=== PATIENT | male | born 1985 | race American Indian/Alaskan Native ===

== ENCOUNTER 2020-11-12 06:42 | Emergency (ER) | payer SELFPAY ==
[2020-11-12] MEDS ORDERED: ONDANSETRON 4 MG ODT TAB PO ONE (07:29)
[2020-11-12] MEDS ORDERED: MORPHINE 4 MG/1 ML INJ IV ONE (07:51)
[2020-11-12] MEDS ORDERED: SODIUM CHLORIDE 0.9% 1000 ML 1,000 ML IV ONE (07:51)
[2020-11-12] MEDS ORDERED: diphenhydrAMINE 50 MG/ML VIAL IV ONE (07:51)
[2020-11-12] MEDS ORDERED: METOCLOPRAMIDE 10 MG/2 ML INJ IV ONE (07:51)
[2020-11-12 08:22] LABS: Basophils % (Auto) 0.6 % (0.0-1.8); Eosinophils % (Auto) 0.1 % (0.0-4.3); Lymphocytes # (Auto) 1.2 K/mm3 (1.2-5.4); Lymphocytes % (Auto) 14.7 % (13.4-35.0); Mean Corpuscular HGB Conc 35 % (32-34); Mean Corpuscular Volume 85 fl (84-94); Monocytes # (Auto) 0.6 K/mm3 (0.0-0.8); Monocytes % (Auto) 7.7 % (0.0-7.3); Platelet Count 200 K/mm3 (140-440); Red Blood Count 4.72 M/mm3 (3.65-5.03); Red Cell Distribution Width 13.7 % (13.2-15.2)
--- NOTE | 2020-11-12 08:43 | Emergency Department Report ---
ED General Adult HPI - General Chief complaint: Abdominal Pain Stated complaint: N/V Time Seen by Provider: 11/12/20 07:44 Source: patient Mode of arrival: Wheelchair Limitations: No Limitations - History of Present Illness Initial comments: 34-year-old -Ivorian male patient presents with complaints of sudden onset of mid abdominal pain and nausea and vomiting starting around 12 AM last night. Patient rates pain as 10/10 in severity and describes it as aching and stabbing. He denies any hematemesis/coffee-ground emesis, diarrhea/constipation, fever/chills/sweats, chest pain/shortness of breath, or history of abdominal surgeries. No alcohol use per patient. He does admit to marijuana use yesterday. Patient states he has had 1 similar episode to this in the past, however he is unsure of what the cause was. -: Sudden Severity scale (0 -10): 10 - Related Data Previous Rx's Medication Instructions Recorded Last Taken Type Capsaicin 45 gm TP QID PRN #1 cream..g. 11/12/20 Unknown Rx Metoclopramide [Reglan] 10 mg PO TID PRN #15 tab 11/12/20 Unknown Rx diphenhydrAMINE [Benadryl CAP] 25 mg PO Q8HR PRN #15 capsule 11/12/20 Unknown Rx Allergies Allergy/AdvReac Type Severity Reaction Status Date / Time No Known Allergies Allergy Verified 11/12/20 07:18 ED Review of Systems ROS: Stated complaint: N/V Other details as noted in HPI Constitutional: denies: chills, diaphoresis, fever, malaise, weakness Respiratory: denies: cough, shortness of breath Cardiovascular: denies: chest pain Gastrointestinal: abdominal pain, nausea, vomiting. denies: diarrhea, co nstipation, hematemesis, melena Genitourinary: denies: urgency, dysuria, frequency, hematuria Skin: denies: rash, lesions, change in color Hematological/Lymphatic: denies: swollen glands ED Past Medical Hx - Past Medical History Previous Medical History?: No - Surgical History Past Surgical History?: No - Social History Smoking Status: Never Smoker Substance Use Type: None - Medications Home Medications: Home Medications Medication Instructions Recorded Confirmed Last Taken Type Capsaicin 45 gm TP QID PRN #1 cream..g. 11/12/20 Unknown Rx Metoclopramide [Reglan] 10 mg PO TID PRN #15 tab 11/12/20 Unknown Rx diphenhydrAMINE [Benadryl CAP] 25 mg PO Q8HR PRN #15 capsule 11/12/20 Unknown Rx ED Physical Exam - General Limitations: No Limitations General appearance: alert, other (Patient appears uncomfortable holding abdomen) - Head Head exam: Present: atraumatic - Eye Eye exam: Present: normal appearance. Absent: scleral icterus - Neck Neck exam: Present: normal inspection - Respiratory Respiratory exam: Present: normal lung sounds bilaterally. Absent: respiratory distress - Cardiovascular Cardiovascular Exam: Present: regular rate, normal rhythm. Absent: systolic murmur, diastolic murmur, rubs, gallop - GI/Abdominal GI/Abdominal exam: Present: soft, tenderness, guarding, normal bowel sounds. Absent: distended, rigid - Extremities Exam Extremities exam: Present: full ROM - Back Exam Back exam: Present: normal inspection - Neurological Exam Neurological exam: Present: alert, oriented X3, normal gait - Psychiatric Psychiatric exam: Present: normal affect, normal mood - Skin Skin exam: Present: warm, dry, intact, normal color. Absent: rash ED Course Vital Signs 11/12/20 11/12/20 11/12/20 07:17 08:23 13:45 Temperature 97.8 F Pulse Rate 45 L 47 L 48 L Respiratory 20 14 14 Rate Blood Pressure 134/72 Blood Pressure 138/75 [Left] O2 Sat by Pulse 100 100 99 Oximetry ED Medical Decision Making - Lab Data Result diagrams: 11/12/20 08:04 11/12/20 08:04 Lab Results 11/12/20 11/12/20 Range/Units 08:04 08:04 WBC 8.3 (4.5-11.0) K/mm3 RBC 4.72 (3.65-5.03) M/mm3 Hgb 14.0 (11.8-15.2) gm/dl Hct 40.0 (35.5-45.6) % MCV 85 (84-94) fl MCH 30 (28-32) pg MCHC 35 H (32-34) % RDW 13.7 (13.2-15.2) % Plt Count 200 (140-440) K/mm3 Lymph % (Auto) 14.7 (13.4-35.0) % Pratt % (Auto) 7.7 H (0.0-7.3) % Eos % (Auto) 0.1 (0.0-4.3) % Baso % (Auto) 0.6 (0.0-1.8) % Lymph # (Auto) 1.2 (1.2-5.4) K/mm3 Pratt # (Auto) 0.6 (0.0-0.8) K/mm3 Eos # (Auto) 0.0 (0.0-0.4) K/mm3 Baso # (Auto) 0.0 (0.0-0.1) K/mm3 Seg Neutrophils % 76.9 H (40.0-70.0) % Seg Neutrophils # 6.4 (1.8-7.7) K/mm3 Sodium 139 (137-145) mmol/L Potassium 4.0 (3.6-5.0) mmol/L Chloride 104.1 (98-107) mmol/L Carbon Dioxide 22 (22-30) mmol/L Anion Gap 17 mmol/L BUN 16 (9-20) mg/dL Creatinine 1.1 (0.8-1.3) mg/dL Estimated GFR > 60 ml/min BUN/Creatinine Ratio 15 % Glucose 157 H (75-100) mg/dL Calcium 9.2 (8.4-10.2) mg/dL Total Bilirubin 0.40 (0.1-1.2) mg/dL AST 27 (5-40) units/L ALT 20 (7-56) units/L Alkaline Phosphatase 74 (35-129) units/L Total Protein 7.6 (6.3-8.2) g/dL Albumin 4.5 (3.9-5) g/dL Albumin/Globulin Ratio 1.5 % Lipase 28 (13-60) units/L - Radiology Data Radiology results: report reviewed CT ABDOMEN AND PELVIS WITH CONTRAST INDICATION / CLINICAL INFORMATION: MAIN. TECHNIQUE: Axial CT images were obtained through the abdomen and pelvis after 100 cc Omnipaque [address] scans at this location are performed using CT dose reduction for ALARA by means of automated exposure control. COMPARISON: None available. FINDINGS: LOWER CHEST: 5 mm perifissural nodule likely representing a benign in trapulmonary lymph node. HEPATOBILIARY: No significant abnormality. PANCREAS/SPLEEN/ADRENALS: No significant abnormality. GENITOURINARY: No significant abnormality. GASTROINTESTINAL/MESENTERY: Appendix is visualized and demonstrates no significant abnormality. No bowel obstruction or inflammation is evident. No free air or significant free fluid. RETROPERITONEUM: No significant adenopathy. REPRODUCTIVE ORGANS: No significant abnormality. VASCULAR: No significant abnormality. BODY WALL: No significant abnormality. SKELETAL SYSTEM: No significant abnormality. IMPRESSION: 1. No acute abdominopelvic abnormality. - Medical Decision Making 34-year-old -Ivorian male patient presents with complaints of sudden onset of mid abdominal pain and nausea and vomiting starting around 12 AM last night. Patient rates pain as 10/10 in severity and describes it as aching and stabbing. He denies any hematemesis/coffee-ground emesis, diarrhea/constipation, fever/chills/sweats, chest pain/shortness of breath, or history of abdominal surgeries. No alcohol use per patient. He does admit to marijuana use yesterday. Patient states he has had 1 similar episode to this in the past, however he is unsure of what the cause was. Given guarding of abdomen on palpation and acute onset of pain, CT abdomen was performed and is negative for any acute abnormalities. Incidental pulmonary nodule found-recommend patient follows up with his primary care doctor for further evaluation of this. After Haldol, pain and vomiting have resolved. Suspect patient symptoms are due to cannabinoid hyperemesis syndrome. His vitals are normal, he is well-appearing, he is stable for discharge home. Strict return precautions were discussed in detail with patient who verbalizes understanding. Critical care attestation.: If time is entered above; I have spent that time in minutes in the direct care of this critically ill patient, excluding procedure time. ED Disposition Clinical Impression: Abdominal pain, Pulmonary nodule 1 cm or greater in diameter, Nausea and vomiting Disposition: DC-01 TO HOME OR SELFCARE Is pt being admited?: No Condition: Stable Instructions: Nausea and Vomiting, Adult, [id number], Pulmonary Nodule, Pulmonary Nodule, [id number], Cannabinoid Hyperemesis Syndrome Prescriptions: diphenhydrAMINE [Benadryl CAP] 25 mg PO Q8HR PRN #15 capsule PRN Reason: Nausea Capsaicin 45 gm TP QID PRN #1 cream..g. PRN Reason: PAIN/NAUSEA Metoclopramide [Reglan] 10 mg PO TID PRN #15 tab PRN Reason: nausea Referrals: [facility] [Provider Group] - 3-5 Days Forms: Work/School Release Form(ED)
[2020-11-12 08:48] LABS: Alanine Aminotransferase 20 units/L (7-56); Albumin 4.5 g/dL (3.9-5); BUN/Creatinine Ratio 15; Blood Urea Nitrogen 16 mg/dL (9-20); Calcium 9.2 mg/dL (8.4-10.2); Hemolysis Index 11
--- NOTE | 2020-11-12 09:27 | Cat Scan Report ---
CT ABDOMEN AND PELVIS WITH CONTRAST INDICATION / CLINICAL INFORMATION: MAIN. TECHNIQUE: Axial CT images were obtained through the abdomen and pelvis after 100 cc Omnipaque [address] scans at this location are performed using CT dose reduction for ALARA by means of automated exposure control. COMPARISON: None available. FINDINGS: LOWER CHEST: 5 mm perifissural nodule likely representing a benign intrapulmonary lymph node. HEPATOBILIARY: No significant abnormality. PANCREAS/SPLEEN/ADRENALS: No significant abnormality. GENITOURINARY: No significant abnormality. GASTROINTESTINAL/MESENTERY: Appendix is visualized and demonstrates no significant abnormality. No stormy wel obstruction or inflammation is evident. No free air or significant free fluid. RETROPERITONEUM: No significant adenopathy. REPRODUCTIVE ORGANS: No significant abnormality. VASCULAR: No significant abnormality. BODY WALL: No significant abnormality. SKELETAL SYSTEM: No significant abnormality. IMPRESSION: 1. No acute abdominopelvic abnormality. Signer Name: Clyde Willson MD Signed: 11/12/2020 9:23 AM Workstation Name: [id number]
[2020-11-12] MEDS ORDERED: ONDANSETRON 4 MG/2 ML INJ IV ONE (09:39)
[2020-11-12] MEDS ORDERED: KETOROLAC 30 MG/1 ML INJ IV ONE (09:39)
[2020-11-12] MEDS ORDERED: HALOPERIDOL LACTATE 5 MG/1 ML INJ IM ONE (11:10)
[2020-11-12 14:01] VITALS: BP 138/75
== END 2020-11-12 13:45 | disposition home or self-care (01) ==
LOC: ED 06:42
DX: R91.8 Other nonspecific abnormal finding of lung field (principal); R11.2 Nausea with vomiting, unspecified; R10.9 Unspecified abdominal pain; Z79.899 Other long term (current) drug therapy
CPT/HCPCS: 36415; 74177; 80053; 83690; 85025; 96361; 96372; 96374; 96375; 99284; J1200; J1630; J1885; J2270; J2405; J2765; J7030; Q9967; Q0162

== ENCOUNTER 2021-08-10 17:10 | Inpatient (IN) | payer SELFPAY ==
[2021-08-10] MEDS ORDERED: ONDANSETRON 4 MG/2 ML INJ ONE (17:31)
[2021-08-10] MEDS ORDERED: SODIUM CHLORIDE 0.9% 1000 ML 1,000 ML IV ONE ×2 (17:41→20:58)
[2021-08-10] MEDS ORDERED: ONDANSETRON 4 MG/2 ML INJ IV ONE ×2 (17:41→19:25)
[2021-08-10] MEDS ORDERED: MORPHINE 4 MG/1 ML INJ IV ONE (17:41)
[2021-08-10] MEDS ORDERED: METOCLOPRAMIDE 10 MG/2 ML INJ ONE (17:50)
[2021-08-10] MEDS ORDERED: METOCLOPRAMIDE 10 MG/2 ML INJ IV ONE (17:55)
--- NOTE | 2021-08-10 18:15 | Emergency Department Report ---
HPI - General Chief Complaint: Abdominal Pain Time Seen by Provider: 08/10/21 17:35 - HPI HPI: 35-year-old -Nauruan male presents to the emergency department with complaint of abdominal pain, nausea, vomiting that started earlier today. He has a history of gallstone pancreatitis and says that this feels similar to previous occurrences. He has not been able to keep down any solids or liquids since this began. He rates his abdominal pain at 10 out of 10 in intensity. No known aggravating or alleviating factors. No recent travel or sick contacts at home. ED Past Medical Hx - Past Medical History Previous Medical History?: Yes Additional medical history: pancreatitis - Surgical History Past Surgical History?: No - Social History Smoking Status: Unknown if ever smoked - Medications Home Medications: Home Medications Medication Instructions Recorded Confirmed Last Taken Type Capsaicin 45 gm TP QID PRN #1 cream..g. 11/12/20 Unknown Rx Metoclopramide [Reglan] 10 mg PO TID PRN #15 tab 11/12/20 Unknown Rx diphenhydrAMINE [Benadryl CAP] 25 mg PO Q8HR PRN #15 capsule 11/12/20 Unknown Rx ED Review of Systems ROS: Stated complaint: DEHYDRATED Other details as noted in HPI Comment: All other systems reviewed and negative Constitutional: denies: chills, fever Eyes: denies: eye pain, vision change ENT: denies: ear pain, throat pain Respiratory: denies: cough, shortness of breath Cardiovascular: denies: chest pain, palpitations Gastrointestinal: abdominal pain, nausea, vomiting Genitourinary: denies: dysuria, discharge Musculoskeletal: denies: back pain, arthralgia Skin: denies: rash, lesions Neurological: denies: headache, weakness Physical Exam - Physical Exam Vital Signs: Vital Signs 08/10/21 08/10/21 17:56 17:57 Pulse Rate 52 L Respiratory 19 Rate Blood Pressure 115/61 [Left] O2 Sat by Pulse 95 95 Oximetry Physical Exam: GENERAL: The patient is ill-appearing as he is actively retching. HENT: Normocephalic. Atraumatic. Patient has moist mucous membranes. EYES: Extraocular motions are intact. NECK: Supple. Trachea is midline. CHEST/LUNGS: Clear to auscultation. There is no respiratory distress noted. HEART/CARDIOVASCULAR: Regular. There is no tachycardia. There is no murmur. ABDOMEN: Abdomen is soft. Generalized abdominal tenderness to palpation. Patient has normal bowel sounds. There is no abdominal distention. SKIN: Skin is warm and dry. NEURO: The patient is awake, alert, and oriented. The patient is cooperative. The patient has no focal neurologic deficits. Normal speech. MUSCULOSKELETAL: There is no tenderness or deformity. There is no limitation range of motion. ED Course Vital Signs 08/10/21 08/10/21 17:56 17:57 Pulse Rate 52 L Respiratory 19 Rate Blood Pressure 115/61 [Left] O2 Sat by Pulse 95 95 Oximetry ED Medical Decision Making - Lab Data Result diagrams: 08/10/21 18:13 08/10/21 18:13 Lab Results 08/10/21 08/10/21 08/10/21 Range/Units 18:13 18:13 18:13 WBC 5.4 (4.5-11.0) K/mm3 RBC 5.24 H (3.65-5.03) M/mm3 Hgb 14.3 (11.8-15.2) gm/dl Hct 45.6 (35.5-45.6) % MCV 87 (84-94) fl MCH 27 L (28-32) pg MCHC 31 L (32-34) % RDW 14.6 (13.2-15.2) % Plt Count 229 (140-440) K/mm3 Lymph % (Auto) 17.6 (13.4-35.0) % Marin % (Auto) 8.9 H (0.0-7.3) % Eos % (Auto) 1.1 (0.0-4.3) % Baso % (Auto) 0.3 (0.0-1.8) % Lymph # (Auto) 1.0 L (1.2-5.4) K/mm3 Marin # (Auto) 0.5 (0.0-0.8) K/mm3 Eos # (Auto) 0.1 (0.0-0.4) K/mm3 Baso # (Auto) 0.0 (0.0-0.1) K/mm3 Seg Neutrophils % 72.1 H (40.0-70.0) % Seg Neutrophils # 3.9 (1.8-7.7) K/mm3 PT 13.5 (12.2-14.9) Sec. INR 0.93 (0.87-1.13) Sodium 139 (137-145) mmol/L Potassium 3.8 (3.6-5.0) mmol/L Chloride 104.8 (98-107) mmol/L Carbon Dioxide 16 L (22-30) mmol/L Anion Gap 22 mmol/L BUN 14 (9-20) mg/dL Creatinine 1.2 (0.8-1.3) mg/dL Estimated GFR > 60 ml/min BUN/Creatinine Ratio 12 % Glucose 129 H (75-100) mg/dL Calcium 9.7 (8.4-10.2) mg/dL Total Bilirubin 0.50 (0.1-1.2) mg/dL Direct Bilirubin < 0.2 (0-0.2) mg/dL Indirect Bilirubin 0.3 mg/dL AST 22 (5-40) units/L ALT 13 (7-56) units/L Alkaline Phosphatase 79 (35-129) units/L Total Protein 7.5 (6.3-8.2) g/dL Albumin 4.9 (3.9-5) g/dL Albumin/Globulin Ratio 1.9 % Lipase 32 (13-60) units/L Urine Color (Yellow) Urine Turbidity (Clear) Urine pH (5.0-7.0) Ur Specific Mead (1.003-1.030) Urine Protein (Negative) mg/dL Urine Glucose (UA) (Negative) mg/dL Urine Ketones (Negative) mg/dL Urine Blood (Negative) Urine Nitrite (Negative) Urine Bilirubin (Negative) Urine Urobilinogen (<2.0) mg/dL Ur Leukocyte Esterase (Negative) Urine WBC (Auto) (0.0-6.0) /HPF Urine RBC (Auto) (0.0-6.0) /HPF U Epithel Cells (Auto) (0-13.0) /HPF Urine Mucus /HPF 08/10/21 Range/Units Unknown WBC (4.5-11.0) K/mm3 RBC (3.65-5.03) M/mm3 Hgb (11.8-15.2) gm/dl Hct (35.5-45.6) % MCV (84-94) fl MCH (28-32) pg MCHC (32-34) % RDW (13.2-15.2) % Plt Count (140-440) K/mm3 Lymph % (Auto) (13.4-35.0) % Marin % (Auto) (0.0-7.3) % Eos % (Auto) (0.0-4.3) % Baso % (Auto) (0.0-1.8) % Lymph # (Auto) (1.2-5.4) K/mm3 Marin # (Auto) (0.0-0.8) K/mm3 Eos # (Auto) (0.0-0.4) K/mm3 Baso # (Auto) (0.0-0.1) K/mm3 Seg Neutrophils % (40.0-70.0) % Seg Neutrophils # (1.8-7.7) K/mm3 PT (12.2-14.9) Sec. INR (0.87-1.13) Sodium (137-145) mmol/L Potassium (3.6-5.0) mmol/L Chloride (98-107) mmol/L Carbon Dioxide (22-30) mmol/L Anion Gap mmol/L BUN (9-20) mg/dL Creatinine (0.8-1.3) mg/dL Estimated GFR ml/min BUN/Creatinine Ratio % Glucose (75-100) mg/dL Calcium (8.4-10.2) mg/dL Total Bilirubin (0.1-1.2) mg/dL Direct Bilirubin (0-0.2) mg/dL Indirect Bilirubin mg/dL AST (5-40) units/L ALT (7-56) units/L Alkaline Phosphatase (35-129) units/L Total Protein (6.3-8.2) g/dL Albumin (3.9-5) g/dL Albumin/Globulin Ratio % Lipase (13-60) units/L Urine Color Yellow (Yellow) Urine Turbidity Clear (Clear) Urine pH 5.0 (5.0-7.0) Ur Specific Mead 1.017 (1.003-1.030) Urine Protein 30 mg/dl (Negative) mg/dL Urine Glucose (UA) Neg (Negative) mg/dL Urine Ketones 80 (Negative) mg/dL Urine Blood Neg (Negative) Urine Nitrite Neg (Negative) Urine Bilirubin Neg (Negative) Urine Urobilinogen < 2.0 (<2.0) mg/dL Ur Leukocyte Esterase Neg (Negative) Urine WBC (Auto) 1.0 (0.0-6.0) /HPF Urine RBC (Auto) < 1.0 (0.0-6.0) /HPF U Epithel Cells (Auto) < 1.0 (0-13.0) /HPF Urine Mucus Few /HPF - Radiology Data Radiology results: report reviewed ACUTE ABDOMEN SERIES 3 VIEWS 1759 INDICATION: Abd pain COMPARISON: CT abdomen and pelvis 11/12/2020 FINDINGS: Lung crooks are clear. No pneumoperitoneum is noted. Bowel gas pattern is unremarkable. Small basilar type calcification is seen in the left pelvis. A mall somewhat linear calcific density is seen on supine view to the left of L4 and an upright view to the left of L1 to. This does not correspond to the kidney and has an unusual shape and unlikely positional change for a ureteral calculus. This is not clearly seen on the prior CT. Possibly this could be external artifact. CT ABDOMEN AND PELVIS WITH IV CONTRAST INDICATION: abd pain, hx of pancreatitis, N/V. COMPARISON: CT 11/12/2020 TECHNIQUE: All CT scans at this facility use dose modulation, automated exposure control, iterative reconstruction or weight based dosing, when appropriate, to reduce radiation dose to as low as reasonably achievable. FINDINGS: Lung Bases: No significant abnormality. Skeletal System: No acute abnormality. 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 ABDOMEN: Liver: No significant abnormality. Gall bladder: No significant abnormality. Bile Ducts: No significant abnormality. Adrenals: No significant abnormality. Right Kidney: No significant abnormality. Left Kidney: No significant abnormality. Pancreas: No significant abnormality. Spleen: No significant abnormality. Upper GI tract: No significant abnormality. Lymph Nodes: No significant adenopathy. Aorta: No significant abnormality. Additional Findings: No significant abnormality. PELVIS: Colon: No acute abnormality. Urinary Bladder and Distal Ureters: No significant abnormality. Appendix: No significant abnormality. Lymph Nodes: No significant adenopathy. Additional Findings: None. IMPRESSION: 1. No acute process in the abdomen or p malik. - Medical Decision Making This patient presents with a 1 day history of nausea, vomiting, abdominal pain that he says is pancreatitis. On examination he is actively retching over the side of the gurney. He has generalized abdominal tenderness to palpation but it is soft and nondistended. Patient's labs are mostly unremarkable except for signs of dehydration with some decreased bicarb at 16 and 80 ketones in the urine. CT scan of the abdomen and pelvis does not show any acute process. Patient has received 2 L of IV fluid resuscitation, 8 mg of Zofran, 10 mg of Reglan and 10 mg of Compazine, as well as IV analgesia. He continues to have nausea and vomiting while in the emergency department. Therefore, it is difficult to rehydrate the patient and send him home to continue oral rehydration. He will be admitted to the hospital for further evaluation and treatment and was accepted for admission by the hospitalist, Dr. Joyce. Critical Care Time: No Critical care attestation.: If time is entered above; I have spent that time in minutes in the direct care of this critically ill patient, excluding procedure time. ED Disposition Clinical Impression: Intractable nausea and vomiting, Intractable abdominal pain, Dehydration Disposition: 01 HOME / SELF CARE / HOMELESS Is pt being admited?: Yes Condition: Fair Time of Disposition: 00:00
--- NOTE | 2021-08-10 18:33 | XRay Report ---
ACUTE ABDOMEN SERIES 3 VIEWS 1759 INDICATION: Abd pain COMPARISON: CT abdomen and pelvis 11/12/2020 FINDINGS: Lung crooks are clear. No pneumoperitoneum is noted. Bowel gas pattern is unremarkable. Sma ll basilar type calcification is seen in the left pelvis. A mall somewhat linear calcific density is seen on supine view to the left of L4 and an upright view to the left of L1 to. This does not corresp ond to the kidney and has an unusual shape and unlikely positional change for a ureteral calculus. Th is is not clearly seen on the prior CT. Possibly this could be external artifact. Signer Name: Dong Grey MD Signed: 08/10/2021 6:29 PM Workstation Name: [id number]
[2021-08-10 19:02] LABS: Basophils % (Auto) 0.3 % (0.0-1.8); Eosinophils # (Auto) 0.1 K/mm3 (0.0-0.4); Eosinophils % (Auto) 1.1 % (0.0-4.3); Hematocrit 45.6 % (35.5-45.6); Hemoglobin 14.3 gm/dl (11.8-15.2); Lymphocytes % (Auto) 17.6 % (13.4-35.0); Mean Corpuscular HGB Conc 31 % (32-34); Mean Corpuscular Volume 87 fl (84-94); Monocytes # (Auto) 0.5 K/mm3 (0.0-0.8); Monocytes % (Auto) 8.9 % (0.0-7.3); Platelet Count 229 K/mm3 (140-440); Red Blood Count 5.24 M/mm3 (3.65-5.03); Red Cell Distribution Width 14.6 % (13.2-15.2)
[2021-08-10 19:11] LABS: INR 0.93 (0.87-1.13)
[2021-08-10 19:15] LABS: Alanine Aminotransferase 13 units/L (7-56); Albumin 4.9 g/dL (3.9-5); BUN/Creatinine Ratio 12; Bilirubin,Direct < 0.2 mg/dL (0-0.2); Blood Urea Nitrogen 14 mg/dL (9-20); Calcium 9.7 mg/dL (8.4-10.2); Hemolysis Index 22
[2021-08-10 19:47] LABS: Bilirubin,Urine NEG (Negative); Blood,Urine NEG (Negative); Color,Urine Yellow (Yellow); Mucus,Urine FEW /HPF; Urobilinogen,Urine < 2.0 mg/dL (<2.0)
[2021-08-10 19:52] LABS: RBC,Urine < 1.0 /HPF (0.0-6.0)
[2021-08-10] MEDS ORDERED: PROCHLORPERAZINE EDISYLATE 10 MG/2 ML VIAL IV ONE (20:58)
--- NOTE | 2021-08-10 21:41 | Cat Scan Report ---
CT ABDOMEN AND PELVIS WITH IV CONTRAST INDICATION: abd pain, hx of pancreatitis, N/V. COMPARISON: CT 11/12/2020 TECHNIQUE: All CT scans at this facility use dose modulation, automated exposure control, iterative reconstructi on or weight based dosing, when appropriate, to reduce radiation dose to as low as reasonably achieva ble. FINDINGS: Lung Bases: No significant abnormality. Skeletal System: No acute abnormality. 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 ABDOMEN: Liver: No significant abnormality. Gallbladder: No significant abnormality. Bile Ducts: No significant abnormality. Adrenals: No significant abnormality. Right Kidney: No significant abnormality. Left Kidney: No significant abnormality. Pancreas: No significant abnormality. Spleen: No significant abnormality. Upper GI tract: No significant abnormality. Lymph Nodes: No significant adenopathy. Aorta: No significant abnormality. Additional Findings: No significant abnormality. PELVIS: Colon: No acute abnormality. Urinary Bladder and Distal Ureters: No significant abnormality. Appendix: No significant abnormality. Lymph Nodes: No significant adenopathy. Additional Findings: None. IMPRESSION: 1. No acute process in the abdomen or pelvis. Signer Name: Mark Blackman MD Signed: 08/10/2021 9:37 PM Workstation Name: [id number]
[2021-08-11] MEDS ORDERED: ONDANSETRON 4 MG/2 ML INJ IV PRN (03:11)
[2021-08-11] MEDS ORDERED: ACETAMINOPHEN 325 MG TAB PO PRN (03:11)
[2021-08-11] MEDS ORDERED: MORPHINE 2 MG/1 ML INJ IV PRN (03:11)
[2021-08-11] MEDS ORDERED: ALBUTEROL 2.5 MG/3 ML NEBU IH PRN (03:11)
[2021-08-11] MEDS ORDERED: HYDROmorphone 1 MG/1 ML INJ IV PRN (03:11)
--- NOTE | 2021-08-11 03:17 | History and Physical Report ---
History of Present Illness Date of examination: 08/11/21 Date of admission: 08/11/21 Chief complaint: Abdominal pain History of present illness: 35-year-old -[place] male with history of gallstone pancreatitis was brought to the emergency room because of abdominal pain, nausea, vomiting that started earlier today. Patient feels similar to previous occurrences. He has not been able to keep down any solids or liquids since this began. He rates his abdominal pain at 10 out of 10 in intensity. No known aggravating or alleviating factors. No recent travel or sick contacts at home. Patient's labs are mostly unremarkable except for signs of dehydration with some decreased bicarb at 16 and 80 ketones in the urine. CT scan of the abdomen and pelvis does not show any acute process. Patient has received 2 L of IV fluid resuscitation, 8 mg of Zofran, 10 mg of Reglan and 10 mg of Compazine, as well as IV analgesia. He continues to have nausea and vomiting while in the emergency department. So going to admit the patient Past History Past Medical History: other (Gallstone pancreatitis) Medications and Allergies Allergies Allergy/AdvReac Type Severity Reaction Status Date / Time No Known Allergies Allergy Verified 11/12/20 07:18 Home Medications Medication Instructions Recorded Confirmed Last Taken Type Capsaicin 45 gm TP QID PRN #1 cream..g. 11/12/20 Unknown Rx Metoclopramide [Reglan] 10 mg PO TID PRN #15 tab 11/12/20 Unknown Rx diphenhydrAMINE [Benadryl CAP] 25 mg PO Q8HR PRN #15 capsule 11/12/20 Unknown Rx Review of Systems All systems: negative Gastrointestinal: abdominal pain, nausea, vomiting Exam - Constitutional Vitals: Temp Pulse Resp BP Pulse Ox 98.9 F 102 H 19 130/64 19 L 08/10/21 21:03 08/10/21 21:03 08/10/21 21:03 08/10/21 21:03 08/10/21 21:03 Results - Labs CBC & Chem 7: 08/10/21 18:13 08/10/21 18:13 Labs: Laboratory Last Values WBC 5.4 K/mm3 (4.5-11.0) 08/10/21 18:13 RBC 5.24 M/mm3 (3.65-5.03) H 08/10/21 18:13 Hgb 14.3 gm/dl (11.8-15.2) 08/10/21 18:13 Hct 45.6 % (35.5-45.6) 08/10/21 18:13 MCV 87 fl (84-94) 08/10/21 18:13 MCH 27 pg (28-32) L 08/10/21 18:13 MCHC 31 % (32-34) L 08/10/21 18:13 RDW 14.6 % (13.2-15.2) 08/10/21 18:13 Plt Count 229 K/mm3 (140-440) 08/10/21 18:13 Lymph % (Auto) 17.6 % (13.4-35.0) 08/10/21 18:13 [place] % (Auto) 8.9 % (0.0-7.3) H 08/10/21 18:13 Eos % (Auto) 1.1 % (0.0-4.3) 08/10/21 18:13 Baso % (Auto) 0.3 % (0.0-1.8) 08/10/21 18:13 Lymph # (Auto) 1.0 K/mm3 (1.2-5.4) L 08/10/21 18:13 [place] # (Auto) 0.5 K/mm3 (0.0-0.8) 08/10/21 18:13 Eos # (Auto) 0.1 K/mm3 (0.0-0.4) 08/10/21 18:13 Baso # (Auto) 0.0 K/mm3 (0.0-0.1) 08/10/21 18:13 Seg Neutrophils % 72.1 % (40.0-70.0) H 08/10/21 18:13 Seg Neutrophils # 3.9 K/mm3 (1.8-7.7) 08/10/21 18:13 PT 13.5 Sec. (12.2-14.9) 08/10/21 18:13 INR 0.93 (0.87-1.13) 08/10/21 18:13 Sodium 139 mmol/L (137-145) 08/10/21 18:13 Potassium 3.8 mmol/L (3.6-5.0) 08/10/21 18:13 Chloride 104.8 mmol/L (98-107) 08/10/21 18:13 Carbon Dioxide 16 mmol/L (22-30) L 08/10/21 18:13 Anion Gap 22 mmol/L 08/10/21 18:13 BUN 14 mg/dL (9-20) 08/10/21 18:13 Creatinine 1.2 mg/dL (0.8-1.3) 08/10/21 18:13 Estimated GFR > 60 ml/min 08/10/21 18:13 BUN/Creatinine Ratio 12 % 08/10/21 18:13 Glucose 129 mg/dL (75-100) H 08/10/21 18:13 Calcium 9.7 mg/dL (8.4-10.2) 08/10/21 18:13 Total Bilirubin 0.50 mg/dL (0.1-1.2) 08/10/21 18:13 Direct Bilirubin < 0.2 mg/dL (0-0.2) 08/10/21 18:13 Indirect Bilirubin 0.3 mg/dL 08/10/21 18:13 AST 22 units/L (5-40) 08/10/21 18:13 ALT 13 units/L (7-56) 08/10/21 18:13 Alkaline Phosphatase 79 units/L (35-129) 08/10/21 18:13 Total Protein 7.5 g/dL (6.3-8.2) 08/10/21 18:13 Albumin 4.9 g/dL (3.9-5) 08/10/21 18:13 Albumin/Globulin Ratio 1.9 % 08/10/21 18:13 Lipase 32 units/L (13-60) 08/10/21 18:13 Urine Color Yellow (Yellow) 08/10/21 Unknown Urine Turbidity Clear (Clear) 08/10/21 Unknown Urine pH 5.0 (5.0-7.0) 08/10/21 Unknown Ur Specific [place] 1.017 (1.003-1.030) 08/10/21 Unknown Urine Protein 30 mg/dl mg/dL (Negative) 08/10/21 Unknown Urine Glucose (UA) Neg mg/dL (Negative) 08/10/21 Unknown Urine Ketones 80 mg/dL (Negative) 08/10/21 Unknown Urine Blood Neg (Negative) 08/10/21 Unknown Urine Nitrite Neg (Negative) 08/10/21 Unknown Urine Bilirubin Neg (Negative) 08/10/21 Unknown Urine Urobilinogen < 2.0 mg/dL (<2.0) 08/10/21 Unknown Ur Leukocyte Esterase Neg (Negative) 08/10/21 Unknown Urine WBC (Auto) 1.0 /HPF (0.0-6.0) 08/10/21 Unknown Urine RBC (Auto) < 1.0 /HPF (0.0-6.0) 08/10/21 Unknown U Epithel Cells (Auto) < 1.0 /HPF (0-13.0) 08/10/21 Unknown Urine Mucus Few /HPF 08/10/21 Unknown - Imaging and Cardiology CT scan - abdomen: report reviewed Assessment and Plan VTE prophylaxis?: Chemical Plan of care discussed with patient/family: Yes - Patient Problems (1) Intractable abdominal pain Current Visit: Yes Status: Acute Plan to address problem: Admit the patient to the medical floor. NPO. D5 half-normal saline at the rate of 125 cc/h. Pepcid 20 mg IV every 12 hours. Morphine 2 mg IV every 4 hours as needed. Zofran 4 mg IV every 6 hours as needed. If needed will consult GI in the morning (2) Intractable nausea and vomiting Current Visit: Yes Status: Acute Plan to address problem: NPO. D5 half-normal saline at the rate of 125 cc/h. Pepcid 20 mg IV every 12 hours. Morphine 2 mg IV every 4 hours as needed. Zofran 4 mg IV every 6 hours as needed. If needed will consult GI in the morning (3) Gallstone pancreatitis Current Visit: Yes Status: Acute Plan to address problem: stable, NPO. D5 half-normal saline at the rate of 125 cc/h. Pepcid 20 mg IV every 12 hours. Morphine 2 mg IV every 4 hours as needed. (4) Dehydration Current Visit: Yes Status: Acute Plan to address problem: NPO. D5 half-normal saline at the rate of 125 cc/h. Recheck BMP in the morning (5) DVT prophylaxis Current Visit: Yes Status: Acute Plan to address problem: Heparin 5000 units subcu every 8 hours for DVT prophylaxis. Pepcid 20 mg IV every 12 hours for GI prophylaxis. Patient is a full code
[2021-08-11] MEDS ORDERED: D5W/0.45% NACL 1,000 ML IV SCH (04:00)
[2021-08-11] MEDS ORDERED: HEPARIN 5,000 UNIT/1 ML VIAL SUB-Q SCH (06:00)
[2021-08-11] MEDS ORDERED: IPRATROPIUM/ALBUTEROL SULFATE 3 ML AMPUL.NEB IH SCH (08:00)
--- NOTE | 2021-08-11 08:09 | Discharge Summary ---
Providers - Providers Date of Admission: 08/11/21 03:11 Attending physician: JAJA EUCEDA MD Primary care physician: [employer] Hospitalization Reason for admission: ABDOMINAL PAIN Condition: Stable Hospital course: 35-year-old -[place] male with history of gallstone pancreatitis was brought to the emergency room because of abdominal pain, nausea, vomiting that started earlier today. Patient feels similar to previous occurrences. He has not been able to keep down any solids or liquids since this began. He rates his abdominal pain at 10 out of 10 in intensity. No known aggravating or alleviating factors. No recent travel or sick contacts at home. Patient's labs are mostly unremarkable except for signs of dehydration with some decreased bicarb at 16 and 80 ketones in the urine. CT scan of the abdomen and pelvis does not show any acute process. Patient has received 2 L of IV fluid resuscitation, 8 mg of Zofran, 10 mg of Reglan and 10 mg of Compazine, as well as IV analgesia. He continues to have nausea and vomiting while in the emergency department. So going to admit the patient Patient reevaluated this morning for Intractable nausea and vomiting. Clinically improved wants to eat something. He did tolerate some full liquid diet my plan is to discharge today and had extensive discussion with him about my recommendation as noted below. He verbalized understanding Abdominal Pain ?MOTILITY ISSUES, noticed home medication included reglan Recommend GI and Surgery follow up outpatient (1) Intractable abdominal pain Current Visit: Yes Status: Acute Plan to address problem: Admit the patient to the medical floor. NPO. D5 half-normal saline at the rate of 125 cc/h. Pepcid 20 mg IV every 12 hours. Morphine 2 mg IV every 4 hours as needed. Zofran 4 mg IV every 6 hours as needed. If needed will consult GI in the morning (2) Intractable nausea and vomiting Current Visit: Yes Status: Acute Plan to address problem: NPO. D5 half-normal saline at the rate of 125 cc/h. Pepcid 20 mg IV every 12 hours. Morphine 2 mg IV every 4 hours as needed. Zofran 4 mg IV every 6 hours as needed. If needed will consult GI in the morning (3) Gallstone pancreatitis Current Visit: Yes Status: Acute Plan to address problem: stable, NPO. D5 half-normal saline at the rate of 125 cc/h. Pepcid 20 mg IV every 12 hours. Morphine 2 mg IV every 4 hours as needed. (4) Dehydration Current Visit: Yes Status: Acute Plan to address problem: NPO. D5 half-normal saline at the rate of 125 cc/h. Recheck BMP in the morning Disposition: 01 HOME / SELF CARE / HOMELESS Final Discharge Diagnosis (Prints w/discharge instructions): INTRACTABLE NAUSEA AND VOMITING WITH ABDOMINAL PAIN Time spent for discharge: 35 MINS Core Measure Documentation - Palliative Care Palliative Care/ Comfort Measures: Not Applicable - Core Measures Any of the following diagnoses?: none Exam - Physical Exam Narrative exam: VITAL SIGNS: Reviewed. GENERAL: The patient appears normally developed, Vital signs as documented. HEAD: No signs of head trauma. EYES: Pupils are equal. Extraocular motions intact. EARS: Hearing grossly intact. MOUTH: Oropharynx is normal. NECK: No adenopathy, no JVD. CHEST: Chest with clear breath sounds bilaterally. No wheezes, rales, or rhonchi. CARDIAC: Regular rate and rhythm. S1 and S2, without murmurs, gallops, or rubs. VASCULAR: No Edema. Peripheral pulses normal and equal in all extremities. ABDOMEN: Soft, non tender and non distended. No rebound or guarding, and no masses palpated. Bowel Sounds normal. MUSCULOSKELETAL: Good range of motion of all major joints. Extremities without clubbing, cyanosis or edema. NEUROLOGIC EXAM: Alert and oriented x 3 No focal sensory or strength deficits. Speech normal. Follows commands. PSYCHIATRIC: Mood normal. SKIN: detail exam as documented in skin assessment - Constitutional Vitals: Temp Pulse Resp BP Pulse Ox 98.9 F 102 H 19 118/68 100 08/10/21 21:03 08/10/21 21:03 08/10/21 21:03 08/11/21 07:42 08/11/21 07:42 Plan Activity: advance as tolerated, fall precautions Diet: other (full liquid diet for 2 days then advance to GI soft for 3 days then can go to full diet) Special Instructions: record daily weights, record daily BP diary, smoking cessation Follow up with: GLADYS SAHA DO [Staff Physician] - 7 Days PRIMARY CAREMD [Primary Care Provider] - 7 Days GINETTE DONG MD [Staff Physician] - 7 Days Prescriptions: Dicyclomine [Bentyl] 10 mg PO QID PRN #20 cap PRN Reason: Pain, Moderate (4-6) Metoclopramide [Reglan TAB] 10 mg PO TID PRN #15 tab PRN Reason: nausea
[2021-08-11 09:42] VITALS: BP 127/107
[2021-08-11] MEDS ORDERED: FAMOTIDINE 20 MG/2 ML INJ IV SCH (10:00)
== END 2021-08-11 09:56 | disposition home or self-care (01) | DRG 440 ==
LOC: ED 17:10 → 3A 08-11 03:11
PROVIDERS: ADMIT Hospitalist; ATTEND Internal Medicine
DX: K85.10 Biliary acute pancreatitis without necrosis or infection (principal); E86.0 Dehydration; Z71.6 Tobacco abuse counseling
CPT/HCPCS: 36415; 74022; 74177; 80048; 80076; 81001; 83690; 85025; 85610; G0378; Q0162; J0780; J2270; J2405; J2765; J7030; Q9967

== ENCOUNTER 2021-12-19 17:30 | Emergency (ER) | payer SELFPAY ==
[2021-12-19] MEDS ORDERED: ONDANSETRON 4 MG/2 ML INJ IV ONE (21:54)
[2021-12-19] MEDS ORDERED: SODIUM CHLORIDE 0.9% 1000 ML 1,000 ML IV ONE (21:54)
[2021-12-19] MEDS ORDERED: HYOSCYAMINE SUBL 0.125 MG TAB SL ONE (21:55)
[2021-12-19 22:34] LABS: Basophils % (Auto) 0.2 % (0.0-1.8); Eosinophils % (Auto) 0.2 % (0.0-4.3); Hematocrit 42.1 % (35.5-45.6); Hemoglobin 14.2 gm/dl (11.8-15.2); Lymphocytes # (Auto) 0.7 K/mm3 (1.2-5.4); Lymphocytes % (Auto) 7.3 % (13.4-35.0); Mean Corpuscular HGB Conc 34 % (32-34); Mean Corpuscular Volume 85 fl (84-94); Monocytes # (Auto) 0.6 K/mm3 (0.0-0.8); Monocytes % (Auto) 5.8 % (0.0-7.3); Platelet Count 244 K/mm3 (140-440); Red Blood Count 4.96 M/mm3 (3.65-5.03); Red Cell Distribution Width 14.4 % (13.2-15.2)
[2021-12-19 22:46] LABS: Alanine Aminotransferase 28 units/L (7-56); Albumin 5.4 g/dL (3.9-5); BUN/Creatinine Ratio 13; Blood Urea Nitrogen 14 mg/dL (9-20); Calcium 10.1 mg/dL (8.4-10.2); Hemolysis Index 13
[2021-12-19] MEDS ORDERED: ONDANSETRON 4 MG/2 ML INJ IV STA (23:33)
[2021-12-19] MEDS ORDERED: MORPHINE 4 MG/1 ML INJ IV STA (23:33)
[2021-12-19] MEDS ORDERED: FAMOTIDINE 20 MG/2 ML INJ IV ONE (23:34)
--- NOTE | 2021-12-20 00:56 | Cat Scan Report ---
CT ABDOMEN AND PELVIS WITH CONTRAST INDICATION / CLINICAL INFORMATION: Lower ABD Pain. TECHNIQUE: Axial CT images were obtained through the abdomen and pelvis after 100 cc Omnipaque [address] scans at this location are performed using CT dose reduction for ALARA by means of automated exposure control. COMPARISON: None available. FINDINGS: LOWER CHEST: No significant abnormality of the imaged chest. LIVER: No focal lesion. No acute findings. GALLBLADDER / BILE DUCTS: No significant abnormality. Biliary ducts grossly unremarkable. SPLEEN: No significant abnormality. PANCREAS: No significant abnormality. ADRENALS: No significant abnormality. KIDNEYS/URETERS: No stones or hydronephrosis. No solid renal lesion. STOMACH / DUODENUM / SMALL BOWEL: The stomach, duodenum, and small bowel demonstrate no significant a bnormality. No specific abnormality of the mesentery demonstrated. COLON: No significant abnormality. APPENDIX: No significant abnormality. PERITONEUM: No free air or free fluid are present within the abdomen or pelvis. LYMPH NODES: No significant adenopathy. AORTA / ARTERIES: No significant abnormality. IVC / VEINS: No significant abnormality. URINARY BLADDER: No significant abnormality. REPRODUCTIVE ORGANS: No significant abnormality. ADDITIONAL ABDOMINAL/PELVIC FINDINGS: None. SKELETAL SYSTEM: No significant abnormality. IMPRESSION: 1. No imaging findings to suggest etiology of the provided symptoms. Signer Name: Jose A iDamond II, MD Signed: 12/20/2021 12:52 AM Workstation Name: [id number]
--- NOTE | 2021-12-20 02:12 | Emergency Department Report ---
ED Abdominal Pain HPI - General Chief Complaint: Nausea/Vomiting/Diarrhea Stated Complaint: DEHYDRATION/BODY CHILLS Time Seen by Provider: 12/19/21 21:52 Source: patient, EMS Mode of arrival: Stretcher Limitations: No Limitations - History of Present Illness Severity scale (0 -10): 8 - Related Data Previous Rx's Medication Instructions Recorded Last Taken Type Dicyclomine [Bentyl] 10 mg PO QID PRN #20 cap 08/11/21 Unknown Rx Metoclopramide [Reglan TAB] 10 mg PO TID PRN #15 tab 08/11/21 Unknown Rx Hyoscyamine Subl [Levsin Sl 0.125 0.125 mg SL Q6HR PRN #20 tab 12/20/21 Unknown Rx TAB] Ondansetron [Zofran ODT TAB] 8 mg PO Q12HR #14 tab.rapdis 12/20/21 Unknown Rx diphenhydrAMINE [Benadryl CAP] 25 mg PO Q6HR PRN #20 capsule 12/20/21 Unknown Rx Allergies Allergy/AdvReac Type Severity Reaction Status Date / Time No Known Allergies Allergy Verified 11/12/20 07:18 ED Review of Systems ROS: Stated complaint: DEHYDRATION/BODY CHILLS Other details as noted in HPI ED Past Medical Hx - Past Medical History Additional medical history: pancreatitis - Social History Smoking Status: Unknown if ever smoked - Medications Home Medications: Home Medications Medication Instructions Recorded Confirmed Last Taken Type Dicyclomine [Bentyl] 10 mg PO QID PRN #20 cap 08/11/21 Unknown Rx Metoclopramide [Reglan TAB] 10 mg PO TID PRN #15 tab 08/11/21 Unknown Rx Hyoscyamine Subl [Levsin Sl 0.125 0.125 mg SL Q6HR PRN #20 tab 12/20/21 Unknown Rx TAB] Ondansetron [Zofran ODT TAB] 8 mg PO Q12HR #14 tab.rapdis 12/20/21 Unknown Rx diphenhydrAMINE [Benadryl CAP] 25 mg PO Q6HR PRN #20 capsule 12/20/21 Unknown Rx ED Physical Exam - General Limitations: No Limitations ED Course Vital Signs 12/19/21 18:22 Temperature 97.8 F Pulse Rate 73 Respiratory 16 Rate Blood Pressure 101/57 [Left] O2 Sat by Pulse 98 Oximetry ED Medical Decision Making - Lab Data Result diagrams: 12/19/21 Unknown 12/19/21 Unknown - Radiology Data Radiology results: report reviewed CT scan showed no major findings to suggest etiology of the provided symptoms per Jose A Diamond II - Medical Decision Making Patient presents to the emergency department with nausea, vomiting, diarrhea, differential diagnosis includes possible acute gastroenteritis. Abdominal examination without peritoneal signs. Currently patient is euvolemic without evidence of dehydration. No evidence of surgical abdomen or other acute medical emergency including bowel obstruction, viscus perforation, vascular catastrophe, appendicitis, cholecystitis at this time. Presentation not consistent with other acute emergent causes of vomiting and diarrhea at this time. This abdominal pain of unclear etiology. Their evaluation has not identified a emergent etiology for the abdominal pain. Specifically, given the very benign exam, normal laboratory studies, and lack of significant risk factors, I have a very low suspicion for appendicitis, ischemic bowel, bowel perforation, or any other life threatening disease. I have discussed with the patient the level of uncertainty with undifferentiated abdominal pain and clearly explained the need to follow-up as noted on the discharge instructions, or return to the Emergency Department immediately if the pain worsens, develops fever, persistent and uncontrollable vomiting, or for any new symptoms or concerns. I discussed with the patient that this presentation today for abdominal pain could represent a significant risk for an acute abdominal process . Although the tests in the ED were essentially normal, there is still a possibility of a process such as appendicitis, diverticulitis, cholecystitis, ulcer, early bowel obstruction, mesenteric ischemia, kidney stone, or even kidney infection which could subsequently cause disability or . The patient understands that they must return within 24 hours for a recheck or see their physician within 24 hours for re-exam due to the possibility of significant surgical or medical process. Plan supportive care, oral/IV rehydration, antiemetics and reassess Critical care attestation.: If time is entered above; I have spent that time in minutes in the direct care of this critically ill patient, excluding procedure time. ED Disposition Clinical Impression: Abdominal pain, Nausea, vomiting, and diarrhea Disposition: 01 HOME / SELF CARE / HOMELESS Condition: Stable Instructions: Abdominal Pain, Adult, Nausea, Adult, [id number], Vomiting, Adult, Diarrhea, Adult Additional Instructions: What is cannabis hyperemesis syndrome? Cannabis hyperemesis syndrome (CHS) is a condition caused by long-term cannabis (marijuana) use. People who have CHS experience reoccurring episodes of nausea, vomiting, dehydration and abdominal pain, with frequent visits to the emergency department. Hyperemesis means severe vomiting. Another name for CHS is cannabinoid hyperemesis syndrome. Cannabinoids are compounds found in the cannabis plant that bind to cannabinoid receptors found in our brains, gastrointestinal tracts and immune cells. The most studied exogenous cannabinoids are tetrahydrocannabinol (THC), cannabidiol (CBD) and cannabigerol (CBG). CHS is more than just a side effect of marijuana. It is a condition that can lead to health complications if left untreated. Who might get cannabis hyperemesis syndrome? People who use cannabis chronically are at risk of developing CHS. It tends to occur in people who use cannabis at least once a week and occurs more often in adults who have been using cannabis since their adolescent years. Typically, there is a delay of several years in the onset of symptoms preceded by chronic marijuana misuse in nearly all cases. How common is cannabinoid hyperemesis syndrome? Only a small portion of people who regularly use cannabis develop CHS. Because CHS is a newly discovered condition, many people may have it and not report it or are misdiagnosed. One study found that up to 6% of people who visited the emergency room for vomiting had CHS. SYMPTOMS AND CAUSES What causes cannabis hyperemesis syndrome? Experts dont know exactly what causes cannabis hyperemesis syndrome. Some researchers suspect genetics may play a role. Others believe CHS may occur due to overstimulation of your endocannabinoid system (ECS). The ECS is a network of receptors in your body that respond to compounds in cannabis. What are the symptoms of CHS? The primary symptoms of CHS are intense and persistent nausea and vomiting. People with this condition vomit extensively, often without warning, and can vomit up to five times per hour. They may also experience diffused abdominal pain, often report weight loss, and appear dehydrated. People with CHS self-learn to take hot showers, which helps reduce or curb some nausea they experience. Many people with CHS will compulsively shower or bathe often for hours every day to relieve cannabis hyperemesis syndrome symptoms. There are three phases of cannabis hyperemesis syndrome. Slightly different symptoms occur in each stage: Prodromal phase: This phase is most common in adults who have used cannabis since they were teenagers. You may have abdominal pain or morning nausea. You may also fear throwing up but never actually vomit. Hyperemetic phase: Usually lasting 24 to 48 hours, people in this phase have overwhelming, recurrent vomiting and nausea. You may start compulsively bathing, and avoid certain foods or purposefully restrict your food intake. Recovery phase: During recovery, people stop using cannabis (even in small amoun ts). When you are in the recovery phase, symptoms lessen over a few days or months. Eventually, they completely disappear. DIAGNOSIS AND TESTS How is cannabis hyperemesis syndrome diagnosed? Your healthcare provider diagnoses CHS based on your symptoms. If you are vomiting frequently, tell your provider about all substance use, including cannabis. Your provider may ask you: How often you use cannabis. How long you have used cannabis. When you vomit or feel nauseated. If other factors, such as certain foods, lead to vomiting. Whether you have lost weight for no known reason. If you take hot baths or showers to try to relieve symptoms. You may also have blood tests, a CT scan or MRI to rule out other causes of nausea and vomiting. You may also take a test if is a possibility. MANAGEMENT AND TREATMENT Is there a cannabis hyperemesis syndrome cure? The only known treatment to permanently get rid of CHS is to stop cannabis use completely. You may have symptoms and side effects of CHS for a few weeks after quitting cannabis. Over time, symptoms will disappear. Can I treat CHS symptoms at home? The only cure for CHS is to stop using cannabis. Hot baths may relieve the nausea temporarily, but they dont cure CHS. Taking too many hot baths can increase dehydration due to sweating. You may use home treatments to relieve CHS symptoms immediately after quitting cannabis. These remedies are not effective long-term, but they can help you transition to the recovery phase. Your healthcare provider may recommend: Antihistamines such as diphenhydramine (Benadryl). Antipsychotic medications such as haloperidol (Haldol) or olanzapine (Zyprexa). Capsaicin cream (Zostrix) to relieve pain. Intravenous (IV) hydration if you become severely dehydrated from vomiting. Pain relievers such as ibuprofen (Advil, Motrin) or acetaminophen (Tylenol). Prescriptions: diphenhydrAMINE [Benadryl CAP] 25 mg PO Q6HR PRN #20 capsule PRN Reason: nausea vomiting symptoms Hyoscyamine Subl [Levsin Sl 0.125 TAB] 0.125 mg SL Q6HR PRN #20 tab PRN Reason: abdominal cramps and spasms Ondansetron [Zofran ODT TAB] 8 mg PO Q12HR #14 tab.rapdis Referrals: FOUZIA LAWTON MD [Primary Care Provider] - 24 Hours
[2021-12-20 02:25] VITALS: BP 100/60
== END 2021-12-20 03:00 | disposition home or self-care (01) ==
LOC: ED 17:30
DX: R10.9 Unspecified abdominal pain (principal); R19.7 Diarrhea, unspecified; R11.2 Nausea with vomiting, unspecified
CPT/HCPCS: 36415; 74177; 80053; 83690; 85025; 96361; 96374; 96375; 96376; 99284; J2270; J2405; J3490; J7030; Q9967